=== PATIENT | female | born 2000 | race Caucasian/White ===

== ENCOUNTER 2025-03-21 14:08 | Emergency (ER) | payer BC ==
[~2025-03-21] VITALS: Ht 157.5 cm; Wt 54.0 kg
[2025-03-21 14:21] VITALS: O2SAT 99
[2025-03-21 14:24] VITALS: BP 116/62; PULSE 76; RESP 14; TEMP 36.8; O2SAT 100
[2025-03-21] MEDS ORDERED: IBUP-1455 MT (15:46)
[2025-03-21] MEDS ORDERED: AMOX1TAB16 MT (15:46)
[2025-03-21] MEDS ORDERED: BO1 TP (15:46)
[2025-03-21] MEDS: TETANUS, DIPHTHERIA, PERTUSSIS VAC/PF 0.5ML (>10YR OLD) IM ONE (16:27)
== END 2025-03-21 16:38 | disposition home or self-care (01) ==
LOC: ER 14:08
DX: S61.552A Open bite of left wrist, initial encounter (principal); W54.0XXA Bitten by dog, initial encounter; Y93.01 Activity, walking, marching and hiking; Y92.89 Other specified places as the place of occurrence of the external cause; Y99.8 Other external cause status
CPT/HCPCS: 90471; 90715; 99283